=== PATIENT | female | born 1950 | race Caucasian/White ===

== ENCOUNTER → 2021-12-10 13:16 | Outpatient (CLI) | payer OTHER, SELFPAY ==
[2021-12-10 15:56] LABS: COVID19 -Nasal RAPID Negative (Negative)
== END ==
PROVIDERS: PCP Family Medicine; Visit Provider Family Medicine Sleep Medicine
DX: Z20.822 Contact with and (suspected) exposure to COVID-19 (principal)
CPT/HCPCS: 87635; C9803

== ENCOUNTER 2021-12-12 08:43 | Inpatient (IN) | payer OTHER, MEDICAID, SELFPAY ==
[2021-11-27 13:14] VITALS: BMI 31.0
[2021-12-12] VITALS (20 sets, daily range): BP systolic 116–163; BP diastolic 63–95; PULSE 82–105; RESP 11–20; TEMP 35.6–36.7; O2SAT 94–98
--- NOTE | 2021-12-12 | DI.RAD.S_ITS ---
PROCEDURE: XR LUMBAR SPINE 2-3V INDICATIONS: L3-4 L4-5 TLIF TECHNIQUE: 2 intraoperative fluoroscopic views of the lumbar spine were acquired. COMPARISON: None. FINDINGS: Intraoperative fluoroscopic images of lumbar spine shows posterior fusion at L3 through L5 levels with intervertebral spacer placement at L3-4 and L4-5 levels. IMPRESSION: Fluoro guidance was provided intraoperatively for posterior fusion at L3 through L5 levels. Dictated by: Santiago Norton M.D. on 12/12/2021 at 15:02 Approved by: Santiago Norton M.D. on 12/12/2021 at 15:12
[2021-12-12] MEDS: LACTATED RINGERS 1,000 ML 42 ML IV ×3 (09:37→14:32)
[2021-12-12] MEDS: MIDAZOLAM 2 MG/2 ML VIAL IV (09:38)
--- NOTE | 2021-12-12 10:12 | PM.PREOP ---
Pre-operative Note COVID-19 COVID-19 status: Negative Result date/Date tested (Pos, Neg/Pending): 12/11/21 Criteria for continued procedure: Expected advancement of disease process, Possibility delay results in more complex future surgery or treatment, Increased loss of function, Continuing or worsening of significant or severe pain, Deterioration of the patient's condition or overall health and Delay expected to result in less-positive ultimate med/surg outcome Interval Note History & Physical reviewed/Exam performed by Physician: Yes Changes to H&P: No
[2021-12-12] MEDS: ALBUTEROL HFA MDI 60 PUFF/8 GM INHALER INH (10:51)
[2021-12-12] MEDS: CEFAZOLIN 2 GM/20 ML SYRINGE IV ×2 (11:16→18:51)
[2021-12-12] MEDS: BUPIVACAINE LIPOSOME 266 MG/20 ML VIAL INJ (11:29)
[2021-12-12] MEDS: BUPIVACAINE 0.25% W/ EPI 30 ML VIAL INJ (11:29)
--- NOTE | 2021-12-12 11:30 | SUR.OPER ---
Prone on spine table, head in foam head support, padded chest and pelvic supports, gel pad at knees, lower legs supported by pillows; nipples, genitalia and toes free of pressure, arms secured on foam padded arm boards at <90 degrees abduction. Tape over blanket at thigh secured to table.
[2021-12-12] MEDS: HYDROMORPHONE 2 MG INJ IV ×3 (15:22→15:32)
--- NOTE | 2021-12-12 15:26 | PM.OP.1 ---
Operative Date/Time/Diagnoses Date of procedure: 12/12/21 Time of procedure: 11:00 Pre-op diagnosis: 1. L3-4, L4-5 spinal stenosis 2. L3-4, L4-5 spondylolisthesis Post-op diagnosis: same Procedure & Clinicians Procedure: 1. L3-4, L4-5 Postero-lateral and posterior interbody fusion 2. L3-4, L4-5 interbody cage placement. 3. L3-4, L4-5 decompressive laminectomy with bilateral facetecomies 4. L3-4, L4-5 Posterior segmental instrumentation 5. Sheldon of bone marrow from iliac crest 6. Utilization of microsurgical technique and operating microscope 7. Robotic assisted navigation surgery Same procedure as scheduled: Yes Indications: Patient has been having chronic back pain and worsening lumbar radiculopathy. Patient failed multiple conservative management with worsening pain weakness and numbness in her lower extremity. Patient has been having difficulty performing activity of daily living. After discussing risks benefits of treatment options, patient elected proceed with surgery. Surgeon: Bettina Orellana Irrigation Flume Layer: Noe Davis Click Yes if Unassisted: No Anesthesia Type: General Operative Notes Closure Type: primary Specimen(s): none sent Prosthetic devices, grafts, tissues, transplants, or devices: Globus CREO MIS screws, Rise cages Estimated Blood Loss (mL): 150 Blood products transfused: none Procedure in detail: Patient was seen in the preoperative area. Risks and benefits of the surgery was discussed with the patient. Informed consent was obtained from the patient and placed in the chart. Surgical site was marked. Patient was taken to the operative room. General anesthesia was administered. Prophylactic antibiotic was given to the patient less than 30 min before the incision was made. Patient was placed into a prone position on the Ashkan table. Patient's back was then prepped and draped in the sterile fashion. Time-out was performed at this time. After patient was prepped and draped, patient's PSIS was palpated and marked bilaterally. Small 1 cm incision was made over the PSIS for placement of the reference probes. Two trocar was placed into the PSIS 1 on each side. The reference probe was attached to the trocar of the reference apparatus. At this time the C-arm imaging was used to confirm AP and lateral of L3, L4-L5 vertebrae and merged the C-arm imaging using the Ther[employer]ogix robotic navigation system with the CT of the lumbar spine. After successful merging was completed and confirmed, skin marker was used to gely out the skin incision using the Theralogix robotic arm. Bilateral incision was made at this time. Pre templated trajectory was used and guided using the Ther[employer] robotic navigation system for bilateral L3 L4, L5 pedicle screw placement. This was done by using the robotic arm to guide the high-speed bur to make a cortical entry point. Next a drill was placed also using the robotic arm and guided using the navigation system drilling partially through bilateral L3, L4, L5 pedicles. Next L3, L4, L5 pedicle screws it was pre templated and measured was placed onto the power chuck wagon driver and inserted into the pedicles bilaterally. After all 6 screws were placed C-arm imaging was taken of both AP and lateral to confirm the placement. Excellent placement of the screws were confirmed and a matched precisely with the pre planned screw placement using the navigation system. MARs retractor was inserted using [employer] guidence. Globus MARS retractors was placed inside the incision and docked onto the L3, L4 lamina. Using microsurgical technique and operating microscope, a L4, L5 laminectomy and L3-4, L4-5 facetectomy was performed using a Kerrison rongeur. Patient was found have severe lateral recess and neural foramen stenosis which was fully decompressed after the laminectomy facetectomy. Patient has significant epidural lipomatosis at both levels which was contributing to significant amount of the spinal stenosis. Epidural lipomatosis was carefully resected from the epidural space of and the epidural space was well decompressed after the laminectomy facetectomy and removal of epidural lipomatosis was completed. More than 75% of the facets were removed during the process of decompression rendering L3-4, L4-5 level grossly unstable and required a fusion procedure at the same time. The disc space at L3-4, L4-5 was identified, and a total diskectomy was performed at L3-4, L4-5 level. The endplates were decorticated using a rasp and shaver. The total diskectomy and decortication was performed at L3-4, L4-5 level in order to to accomplish a L3-4, L4-5 fusion. The local bone from the laminectomy and facetectomy was saved for local bone grafting. After the total diskectomy and decortication was completed, Trifecta bone graft material was combined with local bone that was harvested earlier. At this time, a separate skin is incision was made over the iliac crest. A Jamshidi needle was inserted into the iliac crest through a separate skin incision. 5 cc of bone marrow aspiration was obtained through the separate skin incision using a Jamshidi needle from the iliac crest. The bone marrow aspiration was combined with local bone and the Trifecta bone grafting material. The bone grafting material was placed into the L3-4, L4-5 interbody space along with expandable cages. One cage each was inserted into the L3-4 L4-5 interbody space along with bone graft material. The cage was expanded to its maximum height using the torque limiting screwdriver. The disc preparation as well as the cage insertion were also performed under navigation guidance. After the cage was placed, AP and lateral C-arm imaging was taken to confirm placement of the cage and excellent position was confirmed. Globus MARS retractor was inserted and docked onto the L3-4, L4-5 posterolateral gutter on the right side. Using the power drill, posterior-lateral decortication was performed at L3-4, L4-5 level until bleeding cortical bone was identified. The remaining bone grafting material was placed into the L3-4, L4-5 posterior lateral gutter he order to accomplish posterolateral fusion at the L3-4, L4-5 level. At this time the tulips were attached to the L3, L4-L5 pedicle screw shanks. After measuring the length of the rods, they were inserted into the tulips of the pedicle screws and locked in place using locking caps and torque limiting screwdriver bilaterally. Total 6 caps and 2 titanium rods was used in order to complete the posterior instrumentation construct. After all the hardware was placed, and confirmed with AP and lateral C-arm imaging, the wound was then irrigated with sterile normal saline and packed with Ray-Jack gauze for 3 min to accomplish hemostasis. After the gauze was removed the deep fascia was closed with #1 Vicryl suture. The subcutaneous layer was closed with 2-0 Vicryl. The skin was closed with skin milla. Patient tolerated the procedure well. There were no complications. Neuro monitoring system was used to monitor patient's neurologic status throughout entire procedure. There was no disturbance of the neural monitoring signals throughout the case. Complications: none Post-operative Condition: stable Disposition: PACU Plan for aftercare: Admit to inpatient hospital
[2021-12-12] MEDS: SODIUM CHLORIDE 0.9% 1,000 ML 100 ML IV (16:43)
[2021-12-12] MEDS: HYDROCODONE/ACET 5/325 TABLET 2 TAB PO ×2 (16:46→21:10)
[2021-12-12] MEDS: CITALOPRAM 10 MG TABLET 20 MG PO (16:50)
--- NOTE | 2021-12-12 17:04 | PC.NURSE ---
Pt arrived from PACU at 1630, A&Ox4, no c/o chest pain or SOB. C/o 05/05 back pain, pt medicated per DEC. Dressing both sides of spine C/D/I. sensation intact to all extremities, no n/t. + bowel tones but hypoactive. Fluids started, daughter at bedside, pt oriented to room and call light. Will continue to monitor.
[2021-12-12] MEDS: HYDROMORPHONE 0.5 MG INJ IV (18:22)
[2021-12-12] MEDS: DOCUSATE 100 MG CAPSULE PO (20:39)
[2021-12-12] MEDS: SENNOSIDES 8.6 MG TABLET 17.2 MG PO (20:39)
[2021-12-12] MEDS: carvediloL 12.5 MG TABLET PO (20:39)
[2021-12-12] MEDS: hydrOXYzine pamoate 25 MG CAPSULE PO (21:10)
[2021-12-13] VITALS (10 sets, daily range): BP systolic 96–154; BP diastolic 51–77; PULSE 91–129; RESP 14–24; TEMP 36.1–37.5; O2SAT 90–99
[2021-12-13] MEDS: SODIUM CHLORIDE 0.9% 1,000 ML 100 ML IV (02:40)
[2021-12-13] MEDS: CEFAZOLIN 2 GM/20 ML SYRINGE IV (02:40)
[2021-12-13] MEDS: HYDROCODONE/ACET 5/325 TABLET 2 TAB PO ×3 (02:44→14:18)
[2021-12-13 06:41] LABS: Hematocrit 31.9 % (36-46); Hemoglobin 10.8 g/dL (12.0-16.0)
--- NOTE | 2021-12-13 07:36 | P.PN_ITS ---
Subjective Subjective Date Patient Seen: 12/13/21 Time Patient Seen: 07:36 Interval history: Patient reports her pain is moderate to severe. Denies fever or chills. No nausea or vomiting. Patient still has a catheter and not yet been out of bed. Patient does have her daughter home to assist her. Exam Vital Signs (past 8 hours): - 12/13/21 00:16 12/13/21 05:00 Temperature 97.0 F L 97.7 F Pulse Rate 95 H 94 H Respiratory Rate 14 18 Blood Pressure 108/67 109/66 Pulse Oximetry 97 96 Oxygen Delivery Method Nasal Cannula Oxygen Flow Rate 2 Narrative Exam Narrative: 71-year-old female resting comfortably in bed in no apparent distress. Motor functions intact bilateral lower extremities. Sensation grossly intact to light touch bilateral lower extremities. Const General: cooperative Orientation: alert Resp Effort & Inspection: normal respiratory effort and able to speak in complete s entences Objective Labs Result Diagrams: 12/13/21 06:19 Labs: Laboratory Results - last 24 hr 12/13/21 06:19 Hgb 10.8 L Hct 31.9 L PFSH Medical History Anxiety disorder Aortic aneurysm Asthma History of prosthetic unicompartmental arthroplasty of left knee HLD (hyperlipidemia) HTN (hypertension) IBS (irritable bowel syndrome) Numbness and tingling in both hands Seizure Surgical History History of hysterectomy Hx of bilateral oophorectomy Hx of cholecystectomy Hx of hernia repair Social History household members: none Smoking Status: Never smoker alcohol intake: current Assessment & Plan Post-op Postoperative Procedures: Procedures Operation Date: 12/12/21 10:15 Actual Procedure Side Surgeon p L3-4, L4-5 TLIF w. posterior instrumentation -Robot Bettina Orellana MD Postoperative day: 1 Postoperative status: marginal pain control Postoperative status narrative: Patient is stable status post L3-L4, L4-L5 fusion Postoperative plan: routine post-op care Postoperative plan narrative: Mobilize with physical therapy Multimodal pain management Disposition likely home tomorrow Quality VTE Deep Vein Thrombosis/Pulmonary Embolism Present on Admission: No
[2021-12-13] MEDS: DOCUSATE 100 MG CAPSULE PO ×2 (08:12→20:48)
--- NOTE | 2021-12-13 10:20 | OT.IP.EVAL ---
Current Diagnoses Spondylolisthesis, lumbar region (12/12/21) Surgery Performed Operation Date: 12/12/21 10:15 Actual Procedures p L3-4, L4-5 TLIF w. posterior instrumentation -Robot - Bettina Orellana MD Past Medical History (Last Reviewed 12/13/21 @ 07:38 by Noe Davis PA-C) Anxiety disorder Aortic aneurysm Asthma History of hysterectomy History of prosthetic unicompartmental arthroplasty of left knee HLD (hyperlipidemia) HTN (hypertension) Hx of bilateral oophorectomy Hx of cholecystectomy Hx of hernia repair IBS (irritable bowel syndrome) Numbness and tingling in both hands Seizure Surgical History (Last Reviewed 12/13/21 @ 07:38 by Noe Davis PA-C) History of hysterectomy Hx of bilateral oophorectomy Hx of cholecystectomy Hx of hernia repair Occupational Therapy Inpatient Evaluation/Re-Eval M1 PT/OT-IP Prior Functional Status Start: 12/13/21 12:00 Freq: NEEDED Status: Active Protocol: Document 12/13/21 10:30 AB (Rec: 12/13/21 12:[address] [email or web address]) Medical Review Prior Functional Status Medical History Reviewed Yes Communication able to make needs known Mobility and Gait pt stated that she is independent with all mobilities and ambulation without AD but with difficulties Social History Household Members none Living Arrangements Apartment/Condo Number of Floors (Floors) One Floor Number of Stairs To Enter/Railing? elevator to get to 2nd floor apartment no steps to enter Home Environment Standard Height Toilet,Tub/ Shower,Elevator Home Equipment Four Wheel Walker,Straight Cane,Grab Bars In Shower Additional Social History Comment pt stated that her daughter will be staying with her for ~ 3 weeks to assist her M2 OT-IP Current Condition Start: 12/13/21 12:57 Freq: Status: Active Protocol: Document 12/13/21 09:20 [facility] (Rec: 12/13/21 13:26 [facility] [id number]) Occupational Therapy Current Condition Current Condition Evaluation Date 12/13/21 Treatment Diagnosis s/p L3-4, L4-5 TLIF Diagnosis Onset Date 12/12/21 Post Operative Precautions Lumbar Precautions Log Roll,No Twisting,Limit Bending,Lifting Restriction of 10 lbs,Gait Belt above Incisional Area M3 OT- IP Subjective and Pain Start: 12/13/21 12:57 Freq: Status: Active Protocol: Document 12/13/21 09:20 [facility] (Rec: 12/13/21 13:26 [facility] [id number]) OT- Subjective Occupational Therapy Visit Type Type Initial Evaluation Visit Start Time 11:00 Visit Stop Time 11:25 Total Visit Minutes 25 Occupational Therapy Visit Comments Patient Comments Pt agreed to get up for OT eval. Patient/Caregiver Goals TO go home. OT Pain Assessment Pain When Pain Assessed At Rest Pain Present Pain Present Pain Reported Location back Intensity 8 Scale Used Numeric (0 - 10) M4 OT- IP ADL's Start: 12/13/21 12:57 Freq: Status: Active Protocol: Document 12/13/21 09:20 [facility] (Rec: 12/13/21 13:26 [facility] [id number]) OT [id number] General Evaluation Self-Feeding Ability Standby Assistance Comments OT Self-Feeding Comments set-up assist OT ADL-Grooming General Evaluation Grooming Ability Standby Assistance Areas Needing Assistance Retrieving/Set-up of Grooming Items Comments OT Grooming Comments Assist for set-up while seated in the recliner. OT ADL-Oral Care General Eval Oral Care Ability Independent OT ADL-Dressing General Eval Lower Body Dressing Ability Moderate Assistance Areas Needing Assistance Socks Comments OT Dressing Comments Pt able to doff her socks on her own but not able to jacob her socks. Able to practice use of sock aid. OT ADL-Toileting Comments OT Toileting Comments Pt not having to go to toilet at this time. Suggested best to use wipes and showed pt toilet paper aid which may be beneficial for pt to get to increase ease for hygiene needs. OT ADL-Bathing Comments OT Bathing Comments Not performed. M5 OT- IP IADL's Start: 12/13/21 12:57 Freq: Status: Active Protocol: Document 12/13/21 09:20 [facility] (Rec: 12/13/21 13:26 [facility] [id number]) OT-Instrumental Activities of Daily Living Home Safety Awareness Home Safety Comments Pt a bit drowsy and needing reminders for back precautions . Pt states feels that the pain meds are making her not think clearly. At this time due to her not thinking well, pt would benefit from assist at home at all times. M6 OT- IP Functional Cognition Start: 12/13/21 12:57 Freq: Status: Active Protocol: Document 12/13/21 09:20 [facility] (Rec: 12/13/21 13:26 [facility] [id number]) Cognitive Factors Limiting Selfcare Function Cognitive Ability Level of Alertness Alert,Drowsy Patient Orientation Name,Place,Situation Attention Span Ability Capable of Focused Attention, Capable of Sustained Attention Ability to Follow Commands Able to Follow One Step Commands Safety Awareness Decreased Recall of Precautions,Decreased Ability to Apply Precautions Cognitive Comments Cognitive Assessment Comments Pt is a bit drowsy from pain medications and needing reminders for his bcak precautions. OT- Vision and Hearing OT- Hearing Assessment OT- Hearing Assessment WFL OT- Vision Assessment Visual Acuity WFL M7 OT- IP Mobility and Balance Start: 12/13/21 12:57 Freq: Status: Active Protocol: Document 12/13/21 09:20 [facility] (Rec: 12/13/21 13:26 [facility] [id number]) OT- Bed Mobility Assessment Supine to Sit Supine to Sit Assist Moderate Assistance OT-Transfer Assessment Sit to and From Stand Sit to and from Stand Minimal Assistance Transfers Transfer Ability Moderate Assistance Technique Transfer Destination Bed,Chair Transfer Technique Stand Step Pivot Devices Transfer Assistive Devices Gait Belt,Front Wheeled Walker Comments Mobility Comments MODA to assist to get up from side lying and YOANNA to stand and MIN/MODA to take a few steps to the recliner. Pt a little unsteady on her feet at this time and feeling whoozy BP 109/62. Pt on RA 98% and off O2 from 89-92% after transfer and then O2 on 2L replaced back on pt. Pt needing reminders to breath as pt tends to hold her breath. OT- Balance Assessment Sitting Balance and Reactions Static Sitting Balance Ability Good Dynamic Sitting Balance Ability Fair Standing Balance and Reactions Static Standing Balance Ability Fair M8 OT- IP Objective Assessments Start: 12/13/21 12:57 Freq: Status: Active Protocol: Document 12/13/21 09:20 [facility] (Rec: 12/13/21 13:26 [facility] [id number]) OT-Muscle Tone Assessment Muscle Tone WNL Yes M9 OT- IP Assessment and Plan Start: 12/13/21 12:57 Freq: Status: Active Protocol: Document 12/13/21 09:20 [facility] (Rec: 12/13/21 13:26 [facility] [id number]) OT Summary Assessment and Plan Potential Rehabilitation Potential Good Analytic Complexity at Evaluation Low Summary OT Impairments Pain,Balance,Functional Cognition,Functional Mobility, Grooming,Dressing,Toileting, Bathing,Toilet Transfers, Shower Transfers,Activity Tolerance Progress Towards Goals Slow Progress due to Pain,Slow Progress due to Activity Tolerance Assessment Summary Pt Low complexity and main barriers are pain, a bit unsteady on her feet and now will needing assist for ADL needs. Pt would benefit from a shower chair/tub bench and FWW. Pending progress pt to go home with daughter and friend to assist. Goals Grooming Goal Independent Dressing Goal Independent Toileting Goal Independent Bathing Goal Independent Toilet Transfer Goal Independent Shower Transfer Goal Independent Days to Meet Goals 10 Frequency of Treatment Frequency Of Treatment Once a Day Treatment Plan OT Treatment Plan ADL Training,Functional Cognition Training,Functional Mobility,Patient/Family Education,Discharge Planning Other Treatment Recommendations and Next shower Treatment Focus Discharge Recommendations OT Discharge Recommendations Home with 24/ Assist Available Home Equipment Needs shower chair/tub bench, FWW, sock aid Transportation Needs at Discharge Private Vehicle
--- NOTE | 2021-12-13 10:30 | PT.IIE ---
Current Diagnoses Spondylolisthesis, lumbar region (12/12/21) Surgery Performed Operation Date: 12/12/21 10:15 Actual Procedures p L3-4, L4-5 TLIF w. posterior instrumentation -Robot - Bettina Orellana MD Medical History (Last Reviewed 12/13/21 @ 07:38 by Noe Davis PA-C) Anxiety disorder Aortic aneurysm Asthma History of prosthetic unicompartmental arthroplasty of left knee HLD (hyperlipidemia) HTN (hypertension) IBS (irritable bowel syndrome) Numbness and tingling in both hands Seizure Physical Therapy Inpatient Evaluation/Re-Eval M1 PT/OT-IP Prior Functional Status Start: 12/13/21 12:00 Freq: NEEDED Status: Active Protocol: Document 12/13/21 10:30 AB (Rec: 12/13/21 12:10 AB [email or web address]) Medical Review Prior Functional Status Medical History Reviewed Yes Communication able to make needs known Mobility and Gait pt stated that she is independent with all mobilities and ambulation without AD but with difficulties Social History Household Members none Living Arrangements Apartment/Condo Number of Floors (Floors) One Floor Number of Stairs To Enter/Railing? elevator to get to 2nd floor apartment no steps to enter Home Environment Standard Height Toilet,Tub/ Shower,Elevator Home Equipment Four Wheel Walker,Straight Cane,Grab Bars In Shower Additional Social History Comment pt stated that her daughter will be staying with her for ~ 3 weeks to assist her M2 PT-IP Current Condition Start: 12/13/21 12:00 Freq: NEEDED Status: Active Protocol: Document 12/13/21 10:30 AB (Rec: 12/13/21 12:10 AB [email or web address]) Physical Therapy Current Condition Current Condition Evaluation Date 12/13/21 Treatment Diagnosis s/p L3-4,L4-5 TLIF; difficulty in walking Onset Date 12/12/21 M3 PT-IP Subjective Start: 12/13/21 12:00 Freq: NEEDED Status: Active Protocol: Document 12/13/21 10:30 AB (Rec: 12/13/21 12:10 AB [email or web address]) Subjective Physical Therapy Visit Type Type Initial Evaluation Visit Start Time 10:30 Visit Stop Time 10:50 Total Visit Minutes 20 Number of RESPIRATORY EQUIPMENT ASSISTANT Visits 0 Physical Therapy Visit Comments Patient Comments agreed to do PT but wants to go back to bed after ambulation Therapy Pain Assessment Pain When Pain Assessed At Rest Pain Present Pain Present Pain Reported Location back Intensity 8 Scale Used Numeric (0 - 10) Pain Management Techniques Distraction,Modification of Treatment,Re-positioning, Timing of Activity with Medications M4 PT-IP Mobility and Gait Start: 12/13/21 12:00 Freq: NEEDED Status: Active Protocol: Document 12/13/21 10:30 AB (Rec: 12/13/21 12:10 AB [id number]) PT-Bed Mobility Assessment Rolling Type of Rolling Log Rolling Level of Assist Minimal Assistance Sit to Supine Sit to Supine Minimal Assistance PT-Transfer Assessment Sit to and From Stand Sit to and from Stand Minimal Assistance,1 Person Assistance,Use of Upper Extremities Equipment Transfer Assistive Device Gait Belt,Front Wheeled Walker Orthotic/Prosthetic Devices or Brace: No Transfers Transfer Destination Bed Transfer Technique ambulated Transfer Ability Level of Assist Minimal Assistance,1 Person Assistance,Use of Upper Extremities Comments Mobility Comments pt sitting on chair and c/o 8/ 10 pain. stated that she is not comfortable and wants to go back to bed. agreed to do PT first. Pt with O2 at 1 1/2 L/min min and O2 sat at 95%. pt stated that she does not use O2 at home. O2 sat at room air 94-95%. completed sit to stand from chair min A and cues. increase forward trunk lean and cued for upright posture. ambulated in room using FWW ~ 45 ft min A and cues. pt then ambulated to EOB. completed log roll sit to supine min A and cues. positioned in bed. call light and table placed within reach. O2 sat after activity at room air 95%. put O2 back on. Gait Assessment Gait Gait Assistance Required: Minimum Assistance Distance (Feet) 45 Able to Maintain Weight Bearing Status Yes During Gait Assistive Devices Assistive Device Gait Belt,Front Wheeled Walker Orthotic/Prosthetic Devices or Brace: No Gait Deviations General Gait Pattern Antalgic,Decreased Stride Length,Decreased Feet Clearance,Flexed Trunk,Step-to Gait Factors Limiting Gait Function Factors Limiting Gait Function Decreased Activity Tolerance, Decreased Strength,Limited Range of Motion,Pain,Poor Balance,Poor Safety Awareness PT-Balance Assessment Sitting Balance and Reactions Static Sitting Balance Ability Good Dynamic Sitting Balance Ability Good Standing Balance and Reactions Static Standing Balance Ability Fair Dynamic Standing Balance Ability Fair Device Used FWW M5 PT-IP Objective Assessments Start: 12/13/21 12:00 Freq: NEEDED Status: Active Protocol: Document 12/13/21 10:30 AB (Rec: 12/13/21 12:10 AB [id number]) Orientation Orientation/Cognition Level of Alertness Alert Orientation Name,Place,Situation Language Function Ability No Deficits Noted Safety Awareness Decreased Safety Awareness Memory Description No Deficits Noted Gross Range of Motion Lower Extremity ROM Assessment Within Functional Limits Strength Lower Extremity Strength Assessment Bilaterally Impaired Hip 4-/5 Knee 4-/5 Sensation Assessment Sensation Gross Sensation WNL Muscle Tone Muscle Tone WNL Yes M6 PT-IP Treatment Start: 12/13/21 12:00 Freq: NEEDED Status: Active Protocol: Document 12/13/21 10:30 AB (Rec: 12/13/21 12:10 AB [id number]) Physical Therapy Treatment Education Education Provided Precautions,Weight Bearing Status,Safety M7 PT-IP Assessment and Plan Start: 12/13/21 12:00 Freq: NEEDED Status: Active Protocol: Document 12/13/21 10:30 AB (Rec: 12/13/21 12:10 AB [email or web address]) PT Summary Assessment and Plan Potential Rehabilitation Potential Good Status of Condition at Evaluation Evolving Summary Impairments Pain,ROM,Strength,Balance, Coordination,Sensation,Tone, Cognition,Bed Mobility, Transfers,Gait,Activity Tolerance Assessment Summary pt requiring min A with mobility but requires increase time to complete tasks and c/ o 8/10 LBP affecting activity tolerance and mobility. pt plans to go home and daughter to assist her. will continue to assess progress. Caregiver training will be conducted when appropriate. Goals Bed Mobility Goal Independent Transfer Goal Independent,Front Wheeled Walker Gait Goal Independent,Front Wheel Walker Gait Distance 150 Days to Meet Goals 5 Frequency of Treatment Frequency Of Treatment Twice a Day Treatment Plan Physical Therapy Treatment Plan Bed Mobility Training,Transfer Training,Gait Training, Therapeutic Exercise,Balance Retraining,Post Op Education, Discharge Planning,Hot or Cold Pack,Neuromuscular Re-ed, Coordination Retraining,Manual Therapy Precautions Lumbar Precautions Log Roll,No Twisting,Limit Bending,Lifting Restriction of 10 lbs,Gait Belt above Incisional Area Recommendations To Nursing Amount of Assist Needed 1 Person Assist Discharge Recommendations PT Discharge Recommendations Home with 24/7 Assist Available,Home Health Equipment Needed for Home Before FWW Discharge Transportation Needs at Discharge Private Vehicle,Wheelchair/ Cabulance
--- NOTE | 2021-12-13 13:00 | PT.IPTN ---
Current Diagnoses Spondylolisthesis, lumbar region (12/12/21) Surgery Performed Operation Date: 12/12/21 10:15 Actual Procedures p L3-4, L4-5 TLIF w. posterior instrumentation -Robot - Bettina Orellana MD Physical Therapy Treatment Note M2 PT-IP Current Condition Start: 12/13/21 12:00 Freq: NEEDED Status: Active Protocol: Document 12/13/21 10:30 AB (Rec: 12/13/21 12:10 AB [email or web address]) Physical Therapy Current Condition Current Condition Evaluation Date 12/13/21 Treatment Diagnosis s/p L3-4,L4-5 TLIF; difficulty in walking Onset Date 12/12/21 M3 PT-IP Subjective Start: 12/13/21 12:00 Freq: NEEDED Status: Active Protocol: Document 12/13/21 13:00 AB (Rec: 12/13/21 14:29 AB [email or web address]) Subjective Physical Therapy Visit Type Type Treatment Note Visit Start Time 13:00 Visit Stop Time 13:42 Total Visit Minutes 42 Number of TRUST MANAGER Visits 0 Physical Therapy Visit Comments Patient Comments agreeable to do PT; c/o increase back pain Therapy Pain Assessment Pain When Pain Assessed At Rest Pain Present Pain Present Pain Reported Location back Intensity 8 Scale Used Numeric (0 - 10) Pain Management Techniques Apply Cold,Distraction, Modification of Treatment,Re- positioning M4 PT-IP Mobility and Gait Start: 12/13/21 12:00 Freq: NEEDED Status: Active Protocol: Document 12/13/21 13:00 AB (Rec: 12/13/21 14:29 AB [email or web address]) PT-Bed Mobility Assessment Rolling Type of Rolling Log Rolling Level of Assist Minimal Assistance Supine to Sit Supine to Sit Minimal Assistance Sit to Supine Sit to Supine Minimal Assistance PT-Transfer Assessment Sit to and From Stand Sit to and from Stand Minimal Assistance,1 Person Assistance,Use of Upper Extremities Equipment Transfer Assistive Device Gait Belt,Front Wheeled Walker Orthotic/Prosthetic Devices or Brace: No Comments Mobility Comments pt supine in bed. agreed to do PT. c/o 8/10 pain on low back but wants pain after PT. completed log roll supine to sit min A and max cues. completed sit to stand min A and ambulated towards the window using FWW min A and stated that she needs to sit down. pt sat on bench. pt c/ o increase back pain and just feeling tired. O2 sat decreased to 89% with ambulation at room air. completed sit to stand from the bench min A and pt ambulated back to the bed using fWW min A. pt requested to go back to bed. sit to supine min A and cues. positioned pt in bed. sidelying as requested with pillows. ice pack provided. informed NAC regarding pain and pain meds. call light and table placed within reach. Informed pt regarding caregiver training tomorrow and stated that she will tell her daughter to come in at 1030 am. she will also inform her to obtain a FWW for her. Gait Assessment Gait Gait Assistance Required: Minimum Assistance Distance (Feet) 20 Able to Maintain Weight Bearing Status Yes During Gait Assistive Devices Assistive Device Gait Belt,Front Wheeled Walker Orthotic/Prosthetic Devices or Brace: No Gait Deviations General Gait Pattern Antalgic,Decreased Stride Length,Decreased Feet Clearance,Flexed Trunk,Step-to Gait Factors Limiting Gait Function Factors Limiting Gait Function Decreased Activity Tolerance, Decreased Strength,Limited Range of Motion,Pain,Poor Balance,Poor Safety Awareness M5 PT-IP Objective Assessments Start: 12/13/21 12:00 Freq: NEEDED Status: Active Protocol: Document 12/13/21 10:30 AB (Rec: 12/13/21 12:10 AB [email or web address]) Orientation Orientation/Cognition Level of Alertness Alert Orientation Name,Place,Situation Language Function Ability No Deficits Noted Safety Awareness Decreased Safety Awareness Memory Description No Deficits Noted Gross Range of Motion Lower Extremity ROM Assessment Within Functional Limits Strength Lower Extremity Strength Assessment Bilaterally Impaired Hip 4-/5 Knee 4-/5 Sensation Assessment Sensation Gross Sensation WNL Muscle Tone Muscle Tone WNL Yes M6 PT-IP Treatment Start: 12/13/21 12:00 Freq: NEEDED Status: Active Protocol: Document 12/13/21 13:00 AB (Rec: 12/13/21 14:29 AB [email or web address]) Physical Therapy Treatment Education Education Provided Precautions,Safety M7 PT-IP Assessment and Plan Start: 12/13/21 12:00 Freq: NEEDED Status: Active Protocol: Document 12/13/21 13:00 AB (Rec: 12/13/21 14:29 AB [email or web address]) PT Summary Assessment and Plan Potential Rehabilitation Potential Fair Summary Impairments Pain,ROM,Strength,Balance, Coordination,Sensation,Tone, Cognition,Bed Mobility, Transfers,Gait,Activity Tolerance Progress Towards Goals Slow Progress due to Pain,Slow Progress due to Activity Tolerance Assessment Summary pt continues to require min A with mobility and ambulation and unable to tolerate much activity with c/o increase pain and fatigue. pt plans to go home with daughter to assist her. pt needs to be able to ambulate farther to be able to safely go home. stated that she has ~ 2 block to ambulate to get from the car up to her apartment. Caregiver training set up for tomorrow at 1030 am. will continue to assess progress. Goals Bed Mobility Goal Independent Transfer Goal Independent,Front Wheeled Walker Gait Goal Independent,Front Wheel Walker Gait Distance 150 Days to Meet Goals 5 Frequency of Treatment Frequency Of Treatment Twice a Day Treatment Plan Physical Therapy Treatment Plan Bed Mobility Training,Transfer Training,Gait Training, Therapeutic Exercise,Balance Retraining,Post Op Education, Discharge Planning,Hot or Cold Pack,Neuromuscular Re-ed, Coordination Retraining,Manual Therapy Precautions Lumbar Precautions Log Roll,No Twisting,Limit Bending,Lifting Restriction of 10 lbs,Gait Belt above Incisional Area Recommendations To Nursing Amount of Assist Needed 1 Person Assist Discharge Recommendations PT Discharge Recommendations Home with 24/7 Assist Available,Home Health Equipment Needed for Home Before FWW Discharge Transportation Needs at Discharge Private Vehicle,Wheelchair/ Cabulance
[2021-12-13] MEDS: HYDROMORPHONE 0.5 MG INJ IV ×3 (15:26→21:52)
[2021-12-13] MEDS: CITALOPRAM 10 MG TABLET 20 MG PO (18:05)
--- NOTE | 2021-12-13 18:58 | PC.NURSE ---
A&Ox4. BP low this AM 96/51 but increased to WNL this afternoon. all other vitals stable. On 2L nasal cannula sating in the mid to high 90's. Dressing with shadow drainage, no change throughout the day. Pain 8-10/10 most of this shift. Given PRN Skippers which did not seem to help much. IV dilaudid helped bring her pain down to a 6/10 and she was able to sleep this evening. Price was removed this afternoon. Has not had to urinate since but also was not drinking her water although she was encouraged to do so. Explained the importance of staying hydrated and she drank half a glass of water. SCDs on. Call light within reach, bed low.
[2021-12-13] MEDS: carvediloL 12.5 MG TABLET PO (20:46)
[2021-12-13] MEDS: SENNOSIDES 8.6 MG TABLET 17.2 MG PO (20:48)
[2021-12-14] VITALS (10 sets, daily range): BP systolic 104–151; BP diastolic 45–77; PULSE 68–103; RESP 14–20; TEMP 36.4–39; O2SAT 88–98
[2021-12-14] MEDS: HYDROMORPHONE 0.5 MG INJ IV ×3 (01:17→06:07)
--- NOTE | 2021-12-14 08:02 | PM.PNPO.1 ---
Subjective Subjective Date Patient Seen: 12/14/21 Time Patient Seen: 08:02 Interval history: Patient is complaining of moderate to severe pain this morning. She required 4 doses of IV Dilaudid overnight. She denies any chest pain or palpitations, her pulse rate has decreased to 103 this morning after her rate controlling medications this morning. She is unable to take oral [place] or oxycodone due to itching. Her daughter will be able to help her when she is discharged home. She has been unable to void after catheter removal and has needed an in and out catheterization several times. Exam Vital Signs (past 8 hours): - 12/14/21 01:15 12/14/21 06:49 Temperature 99.2 F 99.3 F Pulse Rate 99 H 103 H Respiratory Rate 20 14 Blood Pressure 116/64 122/57 L Pulse Oximetry 95 92 Oxygen Delivery Method Nasal Cannula Oxygen Flow Rate 2 Narrative Exam Narrative: 71-year-old female, in bed, moderate distress due to pain this morning. Dressing is clean, dry, intact. Bilateral lower extremities: Motor functions are grossly intact, sensation is grossly intact to light touch, bilateral calves are soft and nontender palpation. Objective Labs Result Diagrams: 12/13/21 06:19 PFSH Medical History Anxiety disorder Aortic aneurysm Asthma History of prosthetic unicompartmental arthroplasty of left knee HLD (hyperlipidemia) HTN (hypertension) IBS (irritable bowel syndrome) Numbness and tingling in both hands Seizure Surgical History History of hysterectomy Hx of bilateral oophorectomy Hx of cholecystectomy Hx of hernia repair Social History household members: none Smoking Status: Never smoker alcohol intake: current Assessment & Plan Post-op Postoperative Procedures: Procedures Operation Date: 12/12/21 10:15 Actual Procedure Side Surgeon p L3-4, L4-5 TLIF w. posterior instrumentation -Robot Bettina Orellana MD Postoperative day: 2 Postoperative status: urinary retention and marginal pain control Postoperative status narrative: -marginal pain control status post L3-4, L4-5 TLIF Postoperative plan narrative: -mobilize with PT. Limit bending, lifting, twisting -adding oral Dilaudid, a steroid taper today for better pain control. Also make Tylenol scheduled instead of as needed. Try to avoid IV Dilaudid if possible -hopefully the steroids will also help with some her urinary retention -hopefully home tomorrow, pending better pain control and clearance by Physical therapy. If she is not improving significantly, we may need to consider a SNF Quality VTE Deep Vein Thrombosis/Pulmonary Embolism Present on Admission: No
[2021-12-14] MEDS: DEXAMETHASONE 10 MG/ML VIAL PO (08:46)
[2021-12-14] MEDS: ACETAMINOPHEN 325 MG TABLET 650 MG PO ×3 (08:46→20:47)
[2021-12-14] MEDS: carvediloL 12.5 MG TABLET PO ×2 (08:47→20:45)
[2021-12-14] MEDS: HYDROMORPHONE 4 MG TABLET PO (08:47)
[2021-12-14] MEDS: lisinopriL 20 MG TABLET 40 MG PO (08:47)
[2021-12-14] MEDS: DOCUSATE 100 MG CAPSULE PO ×2 (08:48→20:45)
[2021-12-14] MEDS: MAGNESIUM HYDROXIDE 30 ML UDC PO (08:48)
--- NOTE | 2021-12-14 09:26 | CM.DANOTE ---
Addendum entered by Elvira Patel R.N. 12/14/21 15:38: Met with patient's daughter, Cortney, who plans on taking patient to her home in [place]. She did want to know how to get a hospital bed for patient, and home health. Gave her [facility] information to contact. She is concerned that her mom will need help with toiletihg. Kori Gibson, was in the room and did some teaching, and agreed, [employer] Medicare may not cover skilled rehab, as patient is ambulating in her room, she just needs direction upon bending, twisting. 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 Patient most likely will discharge home with [facility] and stay with daughter in [place]. Original Note: DCP: Case received, EMR reviewed and met with patient. Introduced self and role. Was able to obtain information regarding patient's baseline activity status prior to surgery, as well as her current living situation. DCP assessment completed with information currently available. Patient is a 71 year old female who admitted 2-16, to the care of the orthopedic team. PCP: Dr. Caballero. Payer: confirmed: [employer] Medicare Advantage. Patient came to the hospital via private vehicle for a surgical procedure. Patient had L3-4, L4-5 lateral and posterior interbody fusion secondary to having spinal stenosis. Met with patient in her room. She is alert and oriented, and was laying flat in bed. Patient confirmed that she resides in [facility] alone, but did indicate her daughter, Cortney Randolph, should be able to assist her, and will be here this morning. At her baseline, patient indicated, she is independent, and had been able to drive. Patient indicated, her daughter can stay about 5 hours a day. P: DCP to continue to follow. Will discuss further at team rounds. At this time, plan is home when stable. Elvira Patel RN/Booking Officer Discharge Planning/Care Management CM Discharge Assessment Start: 12/14/21 09:24 Freq: Status: Active Protocol: Document 12/14/21 09:24 (Rec: 12/14/21 09:26 [id number]) Discharge Planning Assessment Assigned Manufacturing Electrician Elvira Patel RN/Booking Officer Advance Directives? Yes Advance Directives on File Yes History Provided By Patient,Medical Record Prior Living Arrangements Apartment/Condo Household Members none Type of transporation used prior to Drives own vehicle admit Independent with ADL's Yes Is patient alert and oriented? Yes Caregiver for Another No Barriers to Discharge Yes Comment Patient resides alone, but she did indicate, daughter can stay with her for 5 hours a day, and does not want to go to [facility] facility Discharge Plan Home Transportation Arrangement Daughter Referrals Initiated None needed Whiteboard Updated in Patient Room with Yes name and ext. # of Manufacturing Electrician Review Status In Process Next Review Type Continued Stay Review Pre-Anesthesia Assessment Start: 11/27/21 13:13 Freq: Status: Complete Protocol: Document 11/27/21 13:14 CAB (Rec: 11/27/21 15:06 CAB [id number]) Pre-Anesthesia Assessment PAC Comment Jehovah Witness- NO BLOOD PRODUCTS Patient Information Reviewed Via Phone Assessment Assessment Completed With Patient H&P Completed Within 30 Days Yes Diagnostic Results BMP/CMP,CBC,EKG Comment Outside labs/ECG scanned, COVID screen-needs to scheduled Primary Care Provider Reid Caballero Seen Specialist in Last 12 Months Yes Specialist Seen Dry House Tender,Orthopedist Primary Language Faroese Insurance Policy Clerk Required No Height 5 ft 4 in Weight 181 lb Body Mass Index (BMI) 31.0 Hearing Ability Normal Visual Impairment No Limitations Visual Assist None Dentition Type Teeth, Natural Present,Teeth, Missing Barriers to Learning None Hx Anesthesia Reactions No Hx Family Anesthesia Reaction No Hx Malignant Hyperthermia No Hx Blood Transfusions No Anesthesia Review Requested No alcohol intake current alcohol intake frequency 0-2 drinks per day Smoking Status Never smoker Substance Use Type does not use Pain Present Pain Reported Musculoskeletal Symptoms Abnormal Gait,Back Pain,Muscle Weakness,Numbness,Radiating Pain into Limb History of Falling (Recent or History of No ) Patient is completely paralyzed or No completely immobile Mental Status Oriented to own ability Is patient on oxygen? No Does patient have HOWARD/SOB No Hx Sleep Apnea No Currently Taking a Beta Sina Yes: Carvedilol Hx Chest Pain No Hx SOB No Hx Syncope or Dizziness Yes: Occasional dizziness r/t back pain per pt Anti-Coagulant Therapy No Has a Dry House Tender Yes: Dr. Perdomo-visit 11/23/21 Cardiac Testing No Hx Pacemaker/ICD No Pacemaker Rep Required? No Comment Cardiac records scanned Diet Type At Home Regular,Vegetarian dysphagia No Gastrointestinal Symptoms Diarrhea Urinary Catheter Present No Hx Urinary Self Catheterization No Diabetes No Patient No Lactating No Hx Drug Resistant Organism No Presence of External or Internal Medical Yes: Left knee Devices Have you had any close contact with No someone diagnosed with COVID-19? Received a COVID vaccine? Yes Received all doses? Yes Marital Status Lives With none Prior Living Arrangements Apartment/Condo Support System Child/Children Does the Patient Have Assistance After Yes: Daughter will be present Surgery during the day to assist with care Patient Discharge Plan Description Return Home Comment Pt advised two day length of stay per surgeon Feels Safe in Current Environment Yes Been Physically Hurt or Threatened By a No Person in Current Environment Do you have thoughts of harming yourself None or others? Are you currently considering suicide? No Do you have a plan to hurt yourself or No Plan others? Do You Have Any Spiritual Beliefs That Yes: Jehovah Witness- NO BLOOD May Affect Your HC Choices? PRODUCTS Do You Have Any Cultural Practices That No May Affect Your HC Choices? Comment Jehovah Witness Who Can We Speak to About Patient's Care Family, friends Identifying Code for Release of Patient Declines to issue Information Health Care Proxy/Next of Kin Cortney shipman) Health Care Proxy Emergency Contact Name Cortney (daughter) Emergency Contact Advance Directives? No Power of Gas Main Fitter No Power of Gas Main Fitter Name Cortney shipman) Power of Gas Main Fitter PAC Instructions Do not shave/clip surgical site,Durable medical equipment ,Medications to take/avoid, Nasal antibiotic,No ETOH/ petroleum product on skin DOS, NPO,Post-op transportation,Pre -surgical wash,Sturdy shoes/ comfortable clothes,Do not bring valuables and remove jewelry
--- NOTE | 2021-12-14 10:40 | OT.IP.TRT ---
Current Diagnoses Spondylolisthesis, lumbar region (12/12/21) Surgery Performed Operation Date: 12/12/21 10:15 Actual Procedures p L3-4, L4-5 TLIF w. posterior instrumentation -Robot - Bettina Orellana MD Occupational Therapy Treatment Note M2 OT-IP Current Condition Start: 12/13/21 12:57 Freq: Status: Active Protocol: Document 12/13/21 09:20 [facility] (Rec: 12/13/21 13:26 [facility] [id number]) Occupational Therapy Current Condition Current Condition Evaluation Date 12/13/21 Treatment Diagnosis s/p L3-4, L4-5 TLIF Diagnosis Onset Date 12/12/21 Post Operative Precautions Lumbar Precautions Log Roll,No Twisting,Limit Bending,Lifting Restriction of 10 lbs,Gait Belt above Incisional Area M3 OT- IP Subjective and Pain Start: 12/13/21 12:57 Freq: Status: Active Protocol: Document 12/14/21 12:28 [facility] (Rec: 12/14/21 12:52 [facility] [id number]) OT- Subjective Occupational Therapy Visit Type Type Treatment Note Visit Start Time 10:00 Visit Stop Time 10:40 Total Visit Minutes 40 Occupational Therapy Visit Comments Patient Comments Pt states her daughter car broke down and that she will be here at 1pm for caregiver training with PT, [employer] notified . Pt wanting to get up to brush her teeth. Patient/Caregiver Goals TO go home. OT Pain Assessment Pain When Pain Assessed During Mobility Pain Present Pain Present Pain Reported Location back Intensity 5 Scale Used Numeric (0 - 10) M4 OT- IP ADL's Start: 12/13/21 12:57 Freq: Status: Active Protocol: Document 12/14/21 12:28 [facility] (Rec: 12/14/21 12:52 [facility] [id number]) OT ADL-Grooming General Evaluation Grooming Ability Standby Assistance Areas Needing Assistance Retrieving/Set-up of Grooming Items Comments OT Grooming Comments set-up and orientation of items as a bit confused today OT ADL-Oral Care General Eval Oral Care Ability Standby Assistance Comments Oral Care Comments Cues to hinge at her hips or just sip into the cup in order to best follow her back precautions. OT ADL-Dressing General Eval Lower Body Dressing Ability Minimal Assistance Areas Needing Assistance Underpants/Brief Comments OT Dressing Comments Pt needing MAX vc to use the solution design engineer to be able to get the brief over her feet and up over her hips. Assist to help pull up over her hips. OT ADL-Toileting General Evaluation Toileting Ability Minimal Assistance Areas Needing Assistance Manage Clothing Comments OT Toileting Comments Assist for brief. Pt not having to go at this time. OT ADL-Bathing Comments OT Bathing Comments Pt wanting to shower tomorrow instead. M5 OT- IP IADL's Start: 12/13/21 12:57 Freq: Status: Active Protocol: Document 12/13/21 09:20 [facility] (Rec: 12/13/21 13:26 [facility] [id number]) OT-Instrumental Activities of Daily Living Home Safety Awareness Home Safety Comments Pt a bit drowsy and needing reminders for back precautions . Pt states feels that the pain meds are making her not think clearly. At this time due to her not thinking well, pt would benefit from asisst at home at all times. M6 OT- IP Functional Cognition Start: 12/13/21 12:57 Freq: Status: Active Protocol: Document 12/14/21 12:28 [facility] (Rec: 12/14/21 12:52 [facility] [id number]) Cognitive Factors Limiting Selfcare Function Cognitive Ability Level of Alertness Confusional State,Drowsy Patient Orientation Name,Place,Situation Attention Span Ability Capable of Focused Attention, Capable of Sustained Attention Ability to Follow Commands Able to Follow One Step Commands with Increased Time, Able to Follow One Step Commands with Repetition Safety Awareness Decreased Recall of Precautions,Decreased Ability to Apply Precautions Cognitive Comments Cognitive Assessment Comments Pt groggy and not thinking well and needing step by step cues for all needs and assist. Pt realizes that she is not thinking well however does not want to be in pain and would rather not think well versus be in pain. Nursing notified. Also recommended if pt going home to have / assist as now not thinking well. M7 OT- IP Mobility and Balance Start: 12/13/21 12:57 Freq: Status: Active Protocol: Document 12/14/21 12:28 [facility] (Rec: 12/14/21 12:52 [facility] [id number]) OT- Bed Mobility Assessment Supine to Sit Supine to Sit Assist Moderate Assistance OT-Transfer Assessment Sit to and From Stand Sit to and from Stand Contact Guard Assistance Transfers Transfer Ability Contact Guard Assistance Technique Transfer Destination Bed,Chair Transfer Technique Stand Step Pivot Devices Transfer Assistive Devices Gait Belt,Front Wheeled Walker Comments Mobility Comments Pt on 2L and from 90-96% and needing to breath as at times pt hold her breath. Pt moving better today with CGA and FWW however still needing MODA for bed mobility needs. OT- Balance Assessment Sitting Balance and Reactions Static Sitting Balance Ability Good Dynamic Sitting Balance Ability Fair Standing Balance and Reactions Static Standing Balance Ability Fair M8 OT- IP Objective Assessments Start: 12/13/21 12:57 Freq: Status: Active Protocol: Document 12/13/21 09:20 [facility] (Rec: 12/13/21 13:26 [facility] [id number]) OT-Muscle Tone Assessment Muscle Tone WNL Yes M9 OT- IP Assessment and Plan Start: 12/13/21 12:57 Freq: Status: Active Protocol: Document 12/14/21 12:28 [facility] (Rec: 12/14/21 12:52 [facility] [id number]) OT Summary Assessment and Plan Potential Rehabilitation Potential Good Analytic Complexity at Evaluation Low Summary OT Impairments Pain,Balance,Functional Cognition,Functional Mobility, Grooming,Dressing,Toileting, Bathing,Toilet Transfers, Shower Transfers,Activity Tolerance Progress Towards Goals Slow Progress due to Pain,Slow Progress due to Medical Issues,Slow Progress due to Activity Tolerance,Slow Progress due to Cognition Assessment Summary Pt a bit confused today and needing MAXA for vc for safety with FWW, help sequence through tasks as confused. Nursing notified and states to look at adjusting her pain medications. Goals Grooming Goal Independent Dressing Goal Independent Toileting Goal Independent Bathing Goal Independent Toilet Transfer Goal Independent Shower Transfer Goal Independent Days to Meet Goals 8 Frequency of Treatment Frequency Of Treatment Once a Day Treatment Plan OT Treatment Plan ADL Training,Functional Cognition Training,Functional Mobility,Patient/Family Education,Discharge Planning Other Treatment Recommendations and Next shower Treatment Focus Discharge Recommendations OT Discharge Recommendations Home with 19/05 Assist Available Home Equipment Needs shower chair/tub bench, FWW, sock aid Transportation Needs at Discharge Private Vehicle
--- NOTE | 2021-12-14 10:49 | PT-IP ANOTE ---
Attempted to see pt at 10:49, pt refused due to pain and fatigue from recent mobilization and states she wants to rest until her daughter arrives for caregiver training.
--- NOTE | 2021-12-14 14:02 | PT.IPTN ---
Current Diagnoses Spondylolisthesis, lumbar region (12/12/21) Surgery Performed Operation Date: 12/12/21 10:15 Actual Procedures p L3-4, L4-5 TLIF w. posterior instrumentation -Robot - Bettina Orellana MD Physical Therapy Treatment Note M2 PT-IP Current Condition Start: 12/13/21 12:00 Freq: NEEDED Status: Active Protocol: Document 12/13/21 10:30 [facility] (Rec: 12/13/21 12:10 [facility] [id number]) Physical Therapy Current Condition Current Condition Evaluation Date 12/13/21 Treatment Diagnosis s/p L3-4,L4-5 TLIF; difficulty in walking Onset Date 12/12/21 M3 PT-IP Subjective Start: 12/13/21 12:00 Freq: NEEDED Status: Active Protocol: Document 12/14/21 13:28 [facility] (Rec: 12/14/21 14:44 [facility] [id number]) Subjective Physical Therapy Visit Type Type Treatment Note Visit Start Time 13:28 Visit Stop Time 14:02 Total Visit Minutes 34 Notes Daughter present for initiation of caregiver training. Number of DENTAL OFFICE RECEPTIONIST Visits 1 Physical Therapy Visit Comments Patient Comments agreeable to do PT; c/o increase back pain M4 PT-IP Mobility and Gait Start: 12/13/21 12:00 Freq: NEEDED Status: Active Protocol: Document 12/14/21 13:28 [facility] (Rec: 12/14/21 14:44 [facility] [id number]) PT-Bed Mobility Assessment Rolling Type of Rolling Log Rolling,Roll to Left Level of Assist Contact Guard Assistance,1 Person Assistance Supine to Sit Supine to Sit Contact Guard Assistance,1 Person Assistance,Bedrails Sit to Supine Sit to Supine Minimal Assistance,1 Person Assistance,Bedrails Scooting Scooting to Edge of Bed Contact Guard Assistance PT-Transfer Assessment Sit to and From Stand Sit to and from Stand Contact Guard Assistance, Minimal Assistance Equipment Transfer Assistive Device Gait Belt,Front Wheeled Walker Orthotic/Prosthetic Devices or Brace: No Transfers Transfer Destination Bed,Chair Transfer Technique ambulated Transfer Ability Level of Assist Minimal Assistance,1 Person Assistance,Use of Upper Extremities Comments Mobility Comments Pt in chair upon arrival w/ daughter in room. Demonstrated gait belt application and bracing FWW to pts daughter. CGA for scooting to EOC, CGA to Min A and cues for sit<> stand w/ FWW. Pt then ambulated ~35 ft around room w FWW and CGA w/ cues/ Pt retuned to bed and performed logroll into and out of bed twice, once w/ DENTAL OFFICE RECEPTIONIST and once w/ pts daughter. Pt required Min A for sit<>sup for LE elevation into bed. Pt then transferred to commode w/ FWW CGA but was unable to void and went back to chair. Able to recall spinal precautions. Pt left in chair w/ daughter in room and all needs in reach. Gait Assessment Gait Gait Assistance Required: Contact Guard Assist,1 Person Assist Distance (Feet) 35 Able to Maintain Weight Bearing Status Yes During Gait Assistive Devices Assistive Device Gait Belt,Front Wheeled Walker Orthotic/Prosthetic Devices or Brace: No Gait Deviations General Gait Pattern Antalgic,Decreased Stride Length,Decreased Feet Clearance,Flexed Trunk,Step-to Gait Factors Limiting Gait Function Factors Limiting Gait Function Decreased Activity Tolerance, Decreased Strength,Limited Range of Motion,Pain,Poor Balance,Poor Safety Awareness Comments Gait Comments Please refer to mobility section for details. Stair Climbing Assessment Comments Stair Climbing Comments Pt states no steps at home, but may stay at daughters home which has 1 step PT-Balance Assessment Sitting Balance and Reactions Static Sitting Balance Ability Good Dynamic Sitting Balance Ability Good Standing Balance and Reactions Static Standing Balance Ability Fair Dynamic Standing Balance Ability Fair Device Used FWW M5 PT-IP Objective Assessments Start: 12/13/21 12:00 Freq: NEEDED Status: Active Protocol: Document 12/13/21 10:30 [facility] (Rec: 12/13/21 12:10 [facility] [id number]) Orientation Orientation/Cognition Level of Alertness Alert Orientation Name,Place,Situation Language Function Ability No Deficits Noted Safety Awareness Decreased Safety Awareness Memory Description No Deficits Noted Gross Range of Motion Lower Extremity ROM Assessment Within Functional Limits Strength Lower Extremity Strength Assessment Bilaterally Impaired Hip 4-/5 Knee 4-/5 Sensation Assessment Sensation Gross Sensation WNL Muscle Tone Muscle Tone WNL Yes M6 PT-IP Treatment Start: 12/13/21 12:00 Freq: NEEDED Status: Active Protocol: Document 12/14/21 13:28 [facility] (Rec: 12/14/21 14:44 [facility] [id number]) Physical Therapy Treatment Education Education Provided Precautions,Safety Other Treatments Other Treatment Performed Initiated caregiver training w / pts daughter. Discussed HHPT , which pt wants. Discussed DME needed such as FWW, toilet riser, potentially w/c if going home rather than daughters due to two block distance to get into apartment . M7 PT-IP Assessment and Plan Start: 12/13/21 12:00 Freq: NEEDED Status: Active Protocol: Document 12/14/21 13:28 [facility] (Rec: 12/14/21 14:44 [facility] [id number]) PT Summary Assessment and Plan Potential Rehabilitation Potential Fair Summary Impairments Pain,ROM,Strength,Balance, Coordination,Sensation,Tone, Cognition,Bed Mobility, Transfers,Gait,Activity Tolerance Progress Towards Goals Slow Progress due to Pain,Slow Progress due to Activity Tolerance Assessment Summary Pt showing improvement w/ mobiltiy and activity tolerance. CGA to Min A for sit<>stand w/ FWW and able to ambulate 35 ft w/ FWW CGA. Initiated caregiver training w / patients daughter but will require follow up to complete. Pt will need to ambulate further distance if going home and if instead going to stay w/ daughter will need to complete 1 STEFAN. Goals Bed Mobility Goal Independent Transfer Goal Independent,Front Wheeled Walker Gait Goal Independent,Front Wheel Walker Gait Distance 150 Days to Meet Goals 5 Frequency of Treatment Frequency Of Treatment Twice a Day Treatment Plan Physical Therapy Treatment Plan Bed Mobility Training,Transfer Training,Gait Training, Therapeutic Exercise,Balance Retraining,Post Op Education, Discharge Planning,Hot or Cold Pack,Neuromuscular Re-ed, Coordination Retraining,Manual Therapy Precautions Lumbar Precautions Log Roll,No Twisting,Limit Bending,Lifting Restriction of 10 lbs,Gait Belt above Incisional Area Recommendations To Nursing Amount of Assist Needed 1 Person Assist Discharge Recommendations PT Discharge Recommendations Home with / Assist Available,Home Health Equipment Needed for Home Before FWW Discharge Transportation Needs at Discharge Private Vehicle,Wheelchair/ Cabulance
--- NOTE | 2021-12-14 15:28 | OT.IP.TRT ---
Current Diagnoses Spondylolisthesis, lumbar region (12/12/21) Surgery Performed Operation Date: 12/12/21 10:15 Actual Procedures p L3-4, L4-5 TLIF w. posterior instrumentation -Robot - Bettina Orellana MD Occupational Therapy Treatment Note M2 OT-IP Current Condition Start: 12/13/21 12:57 Freq: Status: Active Protocol: Document 12/13/21 09:20 [facility] (Rec: 12/13/21 13:26 [facility] [id number]) Occupational Therapy Current Condition Current Condition Evaluation Date 12/13/21 Treatment Diagnosis s/p L3-4, L4-5 TLIF Diagnosis Onset Date 12/12/21 Post Operative Precautions Lumbar Precautions Log Roll,No Twisting,Limit Bending,Lifting Restriction of 10 lbs,Gait Belt above Incisional Area M3 OT- IP Subjective and Pain Start: 12/13/21 12:57 Freq: Status: Active Protocol: Document 12/14/21 15:15 [facility] (Rec: 12/14/21 15:28 [facility] [id number]) OT- Subjective Occupational Therapy Visit Type Type Treatment Note Visit Start Time 14:35 Visit Stop Time 15:14 Total Visit Minutes 39 Occupational Therapy Visit Comments Patient Comments Went to see pt a second time as pt's daughter present for caregiver training. Patient/Caregiver Goals To go home. OT Pain Assessment Pain When Pain Assessed During Mobility Pain Present Pain Present Pain Reported M4 OT- IP ADL's Start: 12/13/21 12:57 Freq: Status: Active Protocol: Document 12/14/21 15:15 [facility] (Rec: 12/14/21 15:28 [facility] [id number]) OT ADL-Grooming General Evaluation Grooming Ability Standby Assistance Areas Needing Assistance Retrieving/Set-up of Grooming Items Comments OT Grooming Comments Able to do while standing with FWW. OT ADL-Dressing General Eval Lower Body Dressing Ability Moderate Assistance,Maximum Assistance Areas Needing Assistance Underpants/Brief,Socks Comments OT Dressing Comments Pt still needing vc to use residential tech and MAX a to assist to get the brief up over her hips. Pt needing assist for socks. Pt's daughter looking into getting a sock aid for the pt. OT ADL-Toileting General Evaluation Toileting Ability Maximum Assistance Areas Needing Assistance Manage Clothing,Perform Perineal Hygiene Comments OT Toileting Comments Pt unable to reach appropriately to clean at this time and showed pt and daughter example of toilet paper aid and that wet ones would also be helpful. Able to notify nursing that pt had diarrhea and wanting medications. OT ADL-Bathing Comments OT Bathing Comments Pt would benefit from a shower chair. M5 OT- IP IADL's Start: 12/13/21 12:57 Freq: Status: Active Protocol: Document 12/13/21 09:20 [facility] (Rec: 12/13/21 13:26 [facility] [id number]) OT-Instrumental Activities of Daily Living Home Safety Awareness Home Safety Comments Pt a bit drowsy and needing reminders for back precautions . Pt states feels that the pain meds are making her not think clearly. At this time due to her not thinking well, pt would benefit from assist at home at all times. M6 OT- IP Functional Cognition Start: 12/13/21 12:57 Freq: Status: Active Protocol: Document 12/14/21 15:15 [facility] (Rec: 12/14/21 15:28 [facility] [id number]) Cognitive Factors Limiting Selfcare Function Cognitive Ability Level of Alertness Alert,Confusional State Patient Orientation Name,Place,Situation Attention Span Ability Capable of Focused Attention, Capable of Sustained Attention Ability to Follow Commands Able to Follow One Step Commands with Increased Time, Able to Follow One Step Commands with Repetition Safety Awareness Decreased Recall of Precautions,Decreased Ability to Apply Precautions Cognitive Comments Cognitive Assessment Comments Pt needing step by step commands for safety, reminders to incorporate her back precautions, and for staying on task. M7 OT- IP Mobility and Balance Start: 12/13/21 12:57 Freq: Status: Active Protocol: Document 12/14/21 15:15 [facility] (Rec: 12/14/21 15:28 [facility] [id number]) OT-Transfer Assessment Sit to and From Stand Sit to and from Stand Contact Guard Assistance, Minimal Assistance Transfers Transfer Ability Contact Guard Assistance Technique Transfer Destination Chair,Toilet Transfer Technique Stand Step Pivot Devices Transfer Assistive Devices Gait Belt,Front Wheeled Walker Comments Mobility Comments Pt on RA at 90% and replaced back on at the end of the session. OT- Balance Assessment Sitting Balance and Reactions Static Sitting Balance Ability Good Dynamic Sitting Balance Ability Fair Standing Balance and Reactions Static Standing Balance Ability Fair M8 OT- IP Objective Assessments Start: 12/13/21 12:57 Freq: Status: Active Protocol: Document 12/13/21 09:20 [facility] (Rec: 12/13/21 13:26 [facility] [id number]) OT-Muscle Tone Assessment Muscle Tone WNL Yes M9 OT- IP Assessment and Plan Start: 12/13/21 12:57 Freq: Status: Active Protocol: Document 12/14/21 15:15 [facility] (Rec: 12/14/21 15:28 [facility] [id number]) OT Summary Assessment and Plan Potential Rehabilitation Potential Good Analytic Complexity at Evaluation Low Summary OT Impairments Pain,Balance,Functional Cognition,Functional Mobility, Grooming,Dressing,Toileting, Bathing,Toilet Transfers, Shower Transfers,Activity Tolerance Progress Towards Goals Slow Progress due to Pain,Slow Progress due to Medical Issues,Slow Progress due to Activity Tolerance,Slow Progress due to Cognition Assessment Summary Pt still groggy and needing step by step commands for safety, FWW use and for her back precautions. Pt's daughter present for caregiver training and had concerns that pt is needing more assist then what she expected. Pt's daughter would benefit from more caregiver training to be more comfortable to assist her mom with her needs, especially for toileting, dressing, and steps to get into her house. Pt's daughter states her mom to go home with her and has two steps with no rails to get into the house. Goals Grooming Goal Independent Dressing Goal Independent Toileting Goal Independent Bathing Goal Independent Toilet Transfer Goal Independent Shower Transfer Goal Independent Days to Meet Goals 10 Frequency of Treatment Frequency Of Treatment Twice a Day Treatment Plan OT Treatment Plan ADL Training,Functional Cognition Training,Functional Mobility,Patient/Family Education,Discharge Planning Other Treatment Recommendations and Next shower, caregiver training Treatment Focus Discharge Recommendations OT Discharge Recommendations Home with / Assist Available,Home Health Home Equipment Needs shower chair/tub bench, FWW, sock aid, toilet paper aid Transportation Needs at Discharge Private Vehicle
[2021-12-14] MEDS: HYDROMORPHONE 2 MG TABLET PO ×2 (15:44→21:24)
[2021-12-14] MEDS: dexAMETHasone 4 MG TABLET PO (17:44)
[2021-12-14] MEDS: CITALOPRAM 10 MG TABLET 20 MG PO (17:44)
[2021-12-14] MEDS: SENNOSIDES 8.6 MG TABLET 17.2 MG PO (20:46)
[2021-12-15] MEDS: dexAMETHasone 4 MG TABLET PO ×2 (02:00→08:07)
[2021-12-15 03:43] VITALS: BP 120/66; PULSE 74; RESP 18; TEMP 36.7; O2SAT 92
[2021-12-15] MEDS: HYDROMORPHONE 2 MG TABLET PO ×3 (05:56→14:10)
--- NOTE | 2021-12-15 06:18 | PC.NURSE ---
Shift note Patient was alert and orientedx4, afebrile, vital signs within acceptable limits, no signs of cardiorespiratory distress. Patient complained of post-op lower back pain, due pain meds given. Patient still retaining urine, attempted to urinate few times but unsuccessful, bladder scan was done with 600+ml urine noted, straight cath done and drained 800 yellowish urine output, patient verbalized relief. Will continue to monitor.
[2021-12-15] MEDS: ACETAMINOPHEN 325 MG TABLET 650 MG PO ×2 (08:06→14:09)
[2021-12-15] MEDS: DOCUSATE 100 MG CAPSULE PO (08:06)
[2021-12-15] MEDS: hydrOXYzine pamoate 25 MG CAPSULE PO (08:06)
[2021-12-15] MEDS: carvediloL 12.5 MG TABLET PO (08:07)
[2021-12-15] MEDS: lisinopriL 20 MG TABLET 40 MG PO (08:07)
[2021-12-15 09:00] VITALS: BP 133/70; PULSE 76; RESP 16; TEMP 37.4; O2SAT 97
--- NOTE | 2021-12-15 09:16 | CM.DPC ---
Addendum entered by Elvira Patel R.N. 12/15/21 12:51: Met with patient's daughter, Cortney, and Paige, occupational therapist was in the room. Gave [facility] brochure. Daughter, Cortney, asked if this comp field case manager can talk to her friend, who is a resource with caregiving experience, named [place]. Let her know that this comp field case manager can't give out any medical information, but received permission from patient to discuss discharge plan. DaughterCortney, put this master planner on speaker, and her friend inquired how home health works. Let her know that this is an agency, does not provide paid caregivers, but therapy and nursing disciplines where schedules are set based upon needs. She started to ask questions, will she get pain meds, what is she is in pain and needs 911. Let her know that this master planner can't give out any medical information, and nurse can update patient's daughter regarding pain medication situation. Did hear back from Rubina at [facility] who stated that if she goes home, and it doesn't work out, they can contact her and she can start the [employer] auth. Did let daughter know this. Shortly after, nurse, Nika, indicated that they checked her blood sugar, was over 300, and family has concerns about medical stability. She will contact ortho, and at this time, is uncertain if she will need hospitalist consult, or if patient will discharge today. Eugenio at [facility] did call back and confirmed that he does have referral, could possibly see her Friday. Did confirm with daughterCortney, that patient will be staying in her own home in [facility] as opposed to going to stay in [place], since she has bars in her own home. Did let Eugenio at [facility] know this. Addendum entered by Elvira Patel R.N. 12/15/21 11:02: Spoke to LINCOLN Manrique, she is planning on discharge home with home health. Went ahead and left a message with Eugenio at [facility] regarding patient. Faxed over face sheet, orders, face to face, DC Summary, H&P,and therapy notes. Put a note on face sheet that she will be staying with daughter in [place], and to use her phone for point of contact. Original Note: DCP Cont: Called Rubina at [facility], in case patient needs skilled versus home. Notes from therapy indicate one person assist, so it is unsure if [facility] will auth her. Rubina did state that they do have bed available, as long as patient is vaccinated. They are also contracted with [employer]. Went ahead and faxed over face sheet, operative report, yesterday's provider note and P.T. notes from yesterday. Patient hopefully can go home with daughter's assist and [facility], but sent referral over to [facility] as a back up. It was noted yesterday from provider, that patient was having some difficulty voiding. P: DCP to continue to follow. [facility] has referral at this time, and will review. Rubina can start the auth for [employer] if patient is appropriate for their facility. Original plan is home with daughter and [facility]. Elvira Patel RN/Glove Presser
[2021-12-15 10:39] VITALS: O2SAT 94
--- NOTE | 2021-12-15 10:49 | P.DS_ITS ---
History of Present Illness History of Present Illness Date Patient Seen: 12/15/21 Time Patient Seen: 10:49 Chief complaint: Low back pain s/p TLIF Narrative: Patient is complaining of moderate low back pain this morning. She notes that the oral Dilaudid and Vistaril are helping significantly. She was able to mobilize with PT. her daughter will be helping her at home. She denies any new numbness or tingling. No chest pain or shortness of breath. The patient has had a bowel movement this morning and has been able to void on her own. Discharge Providers Provider Date of admission: 12/12/21 08:43 Discharge Date: 12/15/21 Primary care physician: Reid Caballero DO Consults: 12/12/21 16:23 Consult to Occupational Therapy Evaluate & Treat Comment: Physician Instructions: Evaluate and treat Consult to Physical Therapy Evaluate & Treat Comment: Physician Instructions: Evaluate and Treat 12/15/21 10:34 Consult to Home Health Routine Comment: Reason For Exam: Home Health RN, P.T, O.T, bath aide Discharge provider: Leann Phillips PA-C Summary Hospital Course Discharge Diagnosis: 1. L3-4, L4-5 spinal stenosis 2. L3-4, L4-5 spondylolisthesis Hospital Course: Operative Date/Time/Diagnoses Date of procedure: 12/12/21 Time of procedure: 11:00 Procedure & Clinicians Procedure: 1. L3-4, L4-5 Postero-lateral and posterior interbody fusion 2. L3-4, L4-5 interbody cage placement. 3. L3-4, L4-5 decompressive laminectomy with bilateral facetecomies 4. L3-4, L4-5 Posterior segmental instrumentation 5. [place] of bone marrow from iliac crest 6. Utilization of microsurgical technique and operating microscope 7. Robotic assisted navigation surgery Same procedure as scheduled: Yes Indications: Patient has been having chronic back pain and worsening lumbar radiculopathy. Patient failed multiple conservative management with worsening pain weakness and numbness in her lower extremity.? Patient has been having difficulty performing activity of daily living.? After discussing risks benefits of treatment options, patient elected proceed with surgery. Surgeon: Bettina Orellana Resource Room Special Education Teacher: Noe Davis Click Yes if Unassisted: No Anesthesia Type: General Operative Notes Closure Type: primary Specimen(s): none sent Prosthetic devices, grafts, tissues, transplants, or devices: Globus CREO MIS screws, Rise cages Estimated Blood Loss (mL): 150 Blood products transfused: none Status at Discharge Cognitive/behavioral status at discharge: oriented Functional status at discharge: uses cane/walker Overall status at discharge: patient is progressing back to baseline Exam Vital Signs (past 8 hours): - 12/15/21 03:43 12/15/21 09:00 12/15/21 10:39 Temperature 98.0 F 99.3 F Pulse Rate 74 76 Respiratory Rate 18 16 Blood Pressure 120/66 133/70 Pulse Oximetry 92 97 94 Oxygen Delivery Method Room Air Oxygen Flow Rate 0 Narrative Exam Narrative: Pleasant 71-year-old female, resting comfortably in bed, no acute distress. Dressing is clean, dry, intact, however the tape has will need to be replaced. Bilateral lower extremities: Motor function intact, sensation is grossly intact to light touch, calves are soft and nontender palpation. Objective Labs Result Diagrams: 12/13/21 06:19 [facility] Medical History Anxiety disorder Aortic aneurysm Asthma History of prosthetic unicompartmental arthroplasty of left knee HLD (hyperlipidemia) HTN (hypertension) IBS (irritable bowel syndrome) Numbness and tingling in both hands Seizure Surgical History History of hysterectomy Hx of bilateral oophorectomy Hx of cholecystectomy Hx of hernia repair Social History household members: none Smoking Status: Never smoker alcohol intake: current Discharge Assessment & Plan Assessment and Plan Assessment: -stable status post L3-4, L4-5 TLIF Plan of Treatment: -mobilize with PT.? Limit bending, lifting, twisting? -urinary retention seems to be resolving, however the patient was straight cathed last night with apparently 800 cc. Patient notes she was able to urinate on her own this morning. We will repeat bladder scans, located discharge home if less than 300 cc. If she is still having urinary retention, we may need to place a Price catheter and have her follow-up with urology on an outpatient b asis. -continue with current pain regimen -patient and her daughter will need also home health for a few visits to assist with physical therapy and mobility within the house. -DC home when cleared by PT and bladder scans are within normal limits, the nurse will call me if she feels we need to place a Price catheter for discharge. Discharge Plan Discharge Plan Patient Disposition: Home Discharge orders & Medications Prescriptions: New acetaminophen 500 mg capsule 500 mg PO Q4H MDD Max 3000 mg per day PRN (Reason: fever or pain) Qty: 90 0RF hydromorphone 2 mg Tablet See Rx Instructions .ROUTE .COMPLEX PRN (Reason: Pain, Severe (7-10)) Qty: 42 0RF Rx Instructions: Take 1-2 tablets by mouth every 4 hours as needed for moderate to severe postoperative pain hydroxyzine pamoate 25 mg Capsule 25 mg PO Q4HR PRN (Reason: Spasm/pain/nausea) Qty: 30 0RF Continued carvedilol 12.5 mg Tablet 12.5 mg PO BID 0RF Rx Instructions: must administer with a meal/food citalopram 20 mg Tablet 20 mg PO QPM 0RF ibuprofen 200 mg Tablet 600 mg PO DAILY PRN (Reason: Pain) 0RF lisinopril 40 mg Tablet 40 mg PO DAILY 0RF albuterol sulfate 90 mcg/actuation Hfa Aerosol Inhaler 2 puff INHALATION DAILY PRN (Reason: Shortness Of Breath) 0RF Follow up/Referrals: Reid Caballero DO [Primary Care Provider] - Bettina Orellana MD [Physician] - (10-14 days for postoperative visit) Diet/Activity/Treatments Diet: Diet as Tolerated Other treatments: Medications: -OTC Tylenol 500 mg 1 tablet every 4 hours as needed for pain/fever. Max 6 tablets per day. -Dilaudid 2 mg take 1-2 tablets every 4 hours as needed for moderate-severe pain (narcotic pain medication). -As needed medications: -Ducolax and /or MiraLax as needed for constipation from narcotic pain medications. -Pepcid AC as needed for stomach upset. -Vistaril (hydroxyine) 25mg 1 tab every 4 hours as needed for spasms/pain/nausea. Dressing/Wound care: -Keep dressing in place until postoperative follow-up office visit. -Okay to shower. Keep wound out of direct water stream. Can use PressNSeal plastic wrap to protect from shower stream. No soaking or submerging until all the scabs fall off (approximately 6 weeks). -Please call the office if dressing becomes wet, soiled, or saturated. Activities: -Limit bending, lifting, twisting. -Weight-bearing as tolerated. Use front wheeled walker, and progress to cane when safe. -Continue with home exercises as directed by your physical therapist. -Ice your incision as needed for pain/inflammation/swelling. Protect your skin with a folded pillowcase. Follow-up: -Follow-up with your surgeon or PA in the office in 10-14 days after surgery. -Follow-up with your surgeon 6 weeks postoperatively. Call the office if you have chest pain, shortness of breath, significant swelling that will not resolve with elevating, fever over 101?, significantly worsening pain. [facility]: [phone] Skin/Wound/Dressing Care Report to your healthcare provider any signs of infection, such as:: chills, fever, night sweats, unusual drainage and unusual redness Visit Report/Discharge Packet Instructions: DI for Prescription Opioid Use, DI for Transforaminal Lumbar Interbody Fusion Stand Alone Forms: Surgery Discharge Discharge Data Primary Care Provider: Reid Caballero VTE Deep Vein Thrombosis/Pulmonary Embolism Present on Admission: No
--- NOTE | 2021-12-15 11:55 | PT.IPTN ---
Current Diagnoses Spondylolisthesis, lumbar region (12/12/21) Surgery Performed Operation Date: 12/12/21 10:15 Actual Procedures p L3-4, L4-5 TLIF w. posterior instrumentation -Robot - Bettina Orellana MD Physical Therapy Treatment Note M2 PT-IP Current Condition Start: 12/13/21 12:00 Freq: NEEDED Status: Active Protocol: Document 12/13/21 10:30 AB (Rec: 12/13/21 12:10 AB [id number]) Physical Therapy Current Condition Current Condition Evaluation Date 12/13/21 Treatment Diagnosis s/p L3-4,L4-5 TLIF; difficulty in walking Onset Date 12/12/21 M3 PT-IP Subjective Start: 12/13/21 12:00 Freq: NEEDED Status: Active Protocol: Document 12/15/21 11:32 KS (Rec: 12/15/21 13:22 KS [id number]) Subjective Physical Therapy Visit Type Type Treatment Note Visit Start Time 11:32 Visit Stop Time 11:55 Total Visit Minutes 23 Notes Daughter present for caregiver training. Number of NET SQL DEVELOPER Visits 2 Physical Therapy Visit Comments Patient Comments Agreeable to participate. M4 PT-IP Mobility and Gait Start: 12/13/21 12:00 Freq: NEEDED Status: Active Protocol: Document 12/15/21 11:32 KS (Rec: 12/15/21 13:22 KS [id number]) PT-Bed Mobility Assessment Rolling Type of Rolling Log Rolling,Roll to Left Level of Assist Contact Guard Assistance,1 Person Assistance Supine to Sit Supine to Sit Contact Guard Assistance,1 Person Assistance,Bedrails Sit to Supine Sit to Supine Minimal Assistance,1 Person Assistance,Bedrails Scooting Scooting to Edge of Bed Contact Guard Assistance PT-Transfer Assessment Sit to and From Stand Sit to and from Stand Contact Guard Assistance, Minimal Assistance Equipment Transfer Assistive Device Gait Belt,Front Wheeled Walker Orthotic/Prosthetic Devices or Brace: No Transfers Transfer Destination Bed,Chair Transfer Technique ambulated Transfer Ability Level of Assist Minimal Assistance,1 Person Assistance,Use of Upper Extremities Comments Mobility Comments Pt sitting on bench in room w/ daughter in room and had gotten up independently. Pts daughter able to apply gaitbelt and CGA for pt sit<> stand w/ cues. Pt then ambulated ~50 ft around room w / FWW and daufgter providing CGA. Pt w/ decreased foot clearance but overall steady gait w/ good pace. Pt practiced logroll into and out of bed and pts daughter able to provided CGA to Min A for LE elevation into bed and cues . Pt transferred to chair CGA. Left in chair w/ all needs in reach. Gait Assessment Gait Gait Assistance Required: Contact Guard Assist,1 Person Assist Distance (Feet) 50 Able to Maintain Weight Bearing Status Yes During Gait Assistive Devices Assistive Device Gait Belt,Front Wheeled Walker Orthotic/Prosthetic Devices or Brace: No Gait Deviations General Gait Pattern Antalgic,Decreased Stride Length,Decreased Feet Clearance,Flexed Trunk,Step-to Gait Factors Limiting Gait Function Factors Limiting Gait Function Decreased Activity Tolerance, Decreased Strength,Limited Range of Motion,Pain,Poor Balance,Poor Safety Awareness Comments Gait Comments Please refer to mobility section for details. Stair Climbing Assessment Comments Stair Climbing Comments Pt states no steps at home. PT-Balance Assessment Sitting Balance and Reactions Static Sitting Balance Ability Good Dynamic Sitting Balance Ability Good Standing Balance and Reactions Static Standing Balance Ability Fair Dynamic Standing Balance Ability Fair Device Used FWW M5 PT-IP Objective Assessments Start: 12/13/21 12:00 Freq: NEEDED Status: Active Protocol: Document 12/13/21 10:30 AB (Rec: 12/13/21 12:10 AB [id number]) Orientation Orientation/Cognition Level of Alertness Alert Orientation Name,Place,Situation Language Function Ability No Deficits Noted Safety Awareness Decreased Safety Awareness Memory Description No Deficits Noted Gross Range of Motion Lower Extremity ROM Assessment Within Functional Limits Strength Lower Extremity Strength Assessment Bilaterally Impaired Hip 4-/5 Knee 4-/5 Sensation Assessment Sensation Gross Sensation WNL Muscle Tone Muscle Tone WNL Yes M6 PT-IP Treatment Start: 12/13/21 12:00 Freq: NEEDED Status: Active Protocol: Document 12/15/21 11:32 KS (Rec: 12/15/21 13:22 KS [id number]) Physical Therapy Treatment Education Education Provided Precautions,Safety Other Treatments Other Treatment Performed Completed caregiver training w / pts daughter. Pt plans to stay at her own apartment that does not have stairs. Pt has FWW and w/c through apartment complex. M7 PT-IP Assessment and Plan Start: 12/13/21 12:00 Freq: NEEDED Status: Active Protocol: Document 12/15/21 11:32 KS (Rec: 12/15/21 13:22 KS [id number]) PT Summary Assessment and Plan Potential Rehabilitation Potential Fair Summary Impairments Pain,ROM,Strength,Balance, Coordination,Sensation,Tone, Cognition,Bed Mobility, Transfers,Gait,Activity Tolerance Progress Towards Goals Slow Progress due to Pain,Slow Progress due to Activity Tolerance Assessment Summary Completed caregiver training w / pt and pts daughter who was able to provide appropriate assist and cues. Pt states she has all necessary equipment at home. Daughter hesitant to stay w/ pt but states she can if necessary. Pt at this time mostly requiring CGA and cues and Min A for LE elevation when getting into bed. She should have assistance and HHPT at home. Goals Bed Mobility Goal Independent Transfer Goal Independent,Front Wheeled Walker Gait Goal Independent,Front Wheel Walker Gait Distance 150 Days to Meet Goals 5 Frequency of Treatment Frequency Of Treatment Twice a Day Treatment Plan Physical Therapy Treatment Plan Bed Mobility Training,Transfer Training,Gait Training, Therapeutic Exercise,Balance Retraining,Post Op Education, Discharge Planning,Hot or Cold Pack,Neuromuscular Re-ed, Coordination Retraining,Manual Therapy Precautions Lumbar Precautions Log Roll,No Twisting,Limit Bending,Lifting Restriction of 10 lbs,Gait Belt above Incisional Area Recommendations To Nursing Amount of Assist Needed 1 Person Assist Discharge Recommendations PT Discharge Recommendations Home with 24/7 Assist Available,Home Health Equipment Needed for Home Before FWW Discharge Transportation Needs at Discharge Private Vehicle,Wheelchair/ Cabulance
--- NOTE | 2021-12-15 13:17 | OT.IP.TRT ---
Current Diagnoses Spondylolisthesis, lumbar region (12/12/21) Surgery Performed Operation Date: 12/12/21 10:15 Actual Procedures p L3-4, L4-5 TLIF w. posterior instrumentation -Robot - Bettina Orellana MD Occupational Therapy Treatment Note M2 OT-IP Current Condition Start: 12/13/21 12:57 Freq: Status: Active Protocol: Document 12/13/21 09:20 [facility] (Rec: 12/13/21 13:26 [facility] [id number]) Occupational Therapy Current Condition Current Condition Evaluation Date 12/13/21 Treatment Diagnosis s/p L3-4, L4-5 TLIF Diagnosis Onset Date 12/12/21 Post Operative Precautions Lumbar Precautions Log Roll,No Twisting,Limit Bending,Lifting Restriction of 10 lbs,Gait Belt above Incisional Area M3 OT- IP Subjective and Pain Start: 12/13/21 12:57 Freq: Status: Active Protocol: Document 12/15/21 12:15 [facility] (Rec: 12/15/21 13:36 [facility] [id number]) OT- Subjective Occupational Therapy Visit Type Type Treatment Note Visit Start Time 12:15 Visit Stop Time 13:17 Total Visit Minutes 62 Occupational Therapy Visit Comments Patient Comments Pt wanting to shower , however incidentally when check py nursing aid BS high above 300. Able to clarify with nursing whether okay to see the pt. Nurse called the PA and clarified okay to continue to work with pt for shower. Patient/Caregiver Goals To go home. OT Pain Assessment Pain When Pain Assessed At Rest Pain Present Pain Present Pain Reported Location back Intensity 3 Scale Used Numeric (0 - 10) M4 OT- IP ADL's Start: 12/13/21 12:57 Freq: Status: Active Protocol: Document 12/15/21 12:15 [facility] (Rec: 12/15/21 13:36 [facility] [id number]) OT ADL-Grooming General Evaluation Grooming Ability Standby Assistance Areas Needing Assistance Retrieving/Set-up of Grooming Items OT ADL-Dressing General Eval Upper Body Dressing Ability Standby Assistance Lower Body Dressing Ability Minimal Assistance Areas Needing Assistance Underpants/Brief,Pants/Shorts, Socks Comments OT Dressing Comments Pt able to use pole maker to jacob clothing over her feet and stil needing YOANNA for completeness. OT ADL-Toileting Comments OT Toileting Comments Pt states able to appropriately reach today and able to simulate and able to reach better but will benefit from the toilet paper aid that her daughter has ordered. OT ADL-Bathing Comments OT Bathing Comments Pt's daughter to look into getting a shower chair for her . M5 OT- IP IADL's Start: 12/13/21 12:57 Freq: Status: Active Protocol: Document 12/13/21 09:20 [facility] (Rec: 12/13/21 13:26 [facility] [id number]) OT-Instrumental Activities of Daily Living Home Safety Awareness Home Safety Comments Pt a bit drowsy and needing reminders for back precautions . Pt states feels that the pain meds are making her not think clearly. At this time due to her not thinking well, pt would benefit from assist at home at all times. M6 OT- IP Functional Cognition Start: 12/13/21 12:57 Freq: Status: Active Protocol: Document 12/15/21 12:15 [facility] (Rec: 12/15/21 13:36 [facility] [id number]) Cognitive Factors Limiting Selfcare Function Cognitive Ability Level of Alertness Alert Patient Orientation Name,Place,Situation Attention Span Ability Capable of Focused Attention, Capable of Sustained Attention Ability to Follow Commands Able to Follow One Step Commands Safety Awareness Decreased Recall of Precautions,Decreased Ability to Apply Precautions Cognitive Comments Cognitive Assessment Comments Pt still needing reminders for safety of FWW , back precautions, and to slow down and be sure to ask for assist as needed. M7 OT- IP Mobility and Balance Start: 12/13/21 12:57 Freq: Status: Active Protocol: Document 12/15/21 12:15 [facility] (Rec: 12/15/21 13:36 [facility] [id number]) OT-Transfer Assessment Sit to and From Stand Sit to and from Stand Standby Assistance,Contact Guard Assistance Transfers Transfer Ability Standby Assistance Technique Transfer Destination Chair,Shower Stall Transfer Technique Stand Step Pivot Devices Transfer Assistive Devices Gait Belt,Front Wheeled Walker Comments Mobility Comments Pt moving better today and able to practice holding onto the wall with CGA from therapist and able simulate to step over tub wall. OT- Balance Assessment Sitting Balance and Reactions Static Sitting Balance Ability Normal Dynamic Sitting Balance Ability Good Standing Balance and Reactions Static Standing Balance Ability Good Dynamic Standing Balance Ability Fair M8 OT- IP Objective Assessments Start: 12/13/21 12:57 Freq: Status: Active Protocol: Document 12/13/21 09:20 [facility] (Rec: 12/13/21 13:26 [facility] [id number]) OT-Muscle Tone Assessment Muscle Tone WNL Yes M9 OT- IP Assessment and Plan Start: 12/13/21 12:57 Freq: Status: Active Protocol: Document 12/15/21 12:15 [facility] (Rec: 12/15/21 13:36 [facility] [id number]) OT Summary Assessment and Plan Potential Rehabilitation Potential Good Analytic Complexity at Evaluation Low Summary OT Impairments Pain,Balance,Functional Cognition,Functional Mobility, Grooming,Dressing,Toileting, Bathing,Toilet Transfers, Shower Transfers,Activity Tolerance Progress Towards Goals Progressing Toward Goals Assessment Summary Pt now looking to go home and daughter to stay with her initially and have home health . Pt still a bit groggy from medications and mainly lack of sleep per pt. Pt still needing reminders for her back precautions. Frequency of Treatment Frequency Of Treatment Once a Day Discharge Recommendations OT Discharge Recommendations Home with 19/05 Assist Available,Home Health Home Equipment Needs shower chair, FWW, sock aid, toilet paper aid Transportation Needs at Discharge Private Vehicle
--- NOTE | 2021-12-15 16:06 | PC.NURSE ---
Discharge: Pt feels ready to d/c to home. Has voided x2, PVR 168 and 107. Pt feels she is emptying bladder with out diff. [employer]GE performed blood glucose on pt inadvertently. Found to have a blood glucose of 300, recheck was 310. Pt reports she was found to be prediabetic. ADAN Phillips called as pt and dtr are very anxious about the reading. PA spoke to pt and family by phone about finding. She is to follow up with her primary care provider. They were satisfied with this. Pt is tolerating diet w/out problems. Has had a bm. PO pain meds have been working well per pt. She reports she can tolerate a lot of pain. Back dressing changed to cover site. Has 2 large stapled incisions and two very sm stapled incision. Wound w/out redness, no drainage, wound edges approx. Seen by PT and given their final instructions. Seen by ADAN this am as well as a phone call and received instructions from her. Reviewed d/c packet, rx has been esent. Questions answered. Pt d/c to home via auto w/dtr.
== END 2021-12-15 13:40 | disposition home health service (06) | DRG 455 ==
LOC: OR 08:49 → AC 08:51
PROVIDERS: Admitting Provider Orthopaedic Surgery Orthopaedic Surgery of the Spine; PCP Family Medicine; Referring Provider Orthopaedic Surgery; Visit Provider Orthopaedic Surgery Orthopaedic Surgery of the Spine
PROC: 0SG10AJ Fusion of 2 or more Lumbar Vertebral Joints with Interbody Fusion Device, Posterior Approach, Anterior Column, Open Approach (ICD-10-PCS; principal; 2021-12-12 10:15)
DX: M43.16 Spondylolisthesis, lumbar region (principal); M48.062 Spinal stenosis, lumbar region with neurogenic claudication; E88.2 Lipomatosis, not elsewhere classified; R33.9 Retention of urine, unspecified; I10 Essential (primary) hypertension; F32.A Depression, unspecified; J45.909 Unspecified asthma, uncomplicated; Z20.822 Contact with and (suspected) exposure to COVID-19
CPT/HCPCS: 36415; 72100; 76000; 85014; 85018; 87635; 94760; 97116; 97162; 97165; 97530; 97535; C9803; A9270; C1713; C9290; J0330; J0690; J1100; J1170; J2250; J2405; J2704; J3010